=== PATIENT | female | born 1950 ===

== ENCOUNTER 2018-04-19 09:11 | Observation (INO) ==
[2018-04-19] MEDS ORDERED: LORazepam 2 MG/ML VIAL IV ONE ×2 (09:30→10:11)
[2018-04-19] MEDS ORDERED: NITROGLYCERIN 0.4 MG TAB.SUBL SL ONE (09:30)
[2018-04-19] MEDS ORDERED: PANTOPRAZOLE 40 MG VIAL IV ONE (09:31)
[2018-04-19] MEDS ORDERED: PHENobarb/HYOSCY/ATROPINE/SCOP 1 DOSE BOTTLE PO ONE (09:31)
[2018-04-19] MEDS ORDERED: ONDANSETRON 4 MG/2 ML VIAL IV ONE (09:32)
[2018-04-19] MEDS ORDERED: NITROGLYCERIN 1 GM OINT.TOP TD ONE (09:32)
--- NOTE | 2018-04-19 09:58 | Emergency Department Note ---
Skin/Abscess/FB HPI - General Chief complaint: Skin/Abscess/Foreign Body Stated complaint: something stuck in esophagus, hx of this Time Seen by Provider: 04/19/18 09:29 Source: patient Mode of arrival: ambulatory Limitations: no limitations - History of Present Illness HPI Narrative: Steak last night. She has a sensation of foreign body, pressure sensation in the epigastric area radiating up to the jugular notch. Improving slightly overnight. At this point she still has a burning sensation in the epigastric area, feels like heartburn in the past she has been on Prilosec but discontinued using that medication. She had 1 prior episode of foreign body that was stuck in the esophagus, does tell me that she was eating steak last night and she has had symptoms throughout the night. Even small sips of water seemed to be coming back up. - Related Data Allergies Allergy/AdvReac Type Severity Reaction Status Date / Time doxycycline Allergy Intermediate Vomiting Verified 04/19/18 09:15 Penicillins Allergy Intermediate Vomiting Verified 04/19/18 09:15 Review of Systems All systems ED: reviewed and negative except as stated. Past Medical History - Past Medical History Source: old records reviewed Medical history: Reports: GERD Surgical history ED: Reports: , hysterectomy Family history: Reports: no significant family history - Social History smoking status: Never smoker Alcohol use: Reports: Rarely Drug use: Reports: none Physical Exam Limitations: no limitations General appearance: alert, in no apparent distress Head: atraumatic, normocephalic Eye: Present: normal appearance, PERRL, EOMI ENT: normal exam, normal oropharynx, mucous membranes moist, TM's normal bilaterally Neck: Present: normal inspection, full ROM, trachea midline Chest: Present: normal inspection, symmetric chest wall rise Respiratory: Present: normal lung sounds bilaterally. Absent: respiratory distress Cardiovascular: Present: regular rate, normal rhythm Abdominal: Present: soft, normal bowel sounds. Absent: distention, tenderness, guarding Extremities: Present: normal inspection, full ROM, tenderness Back: Present: normal inspection, full ROM, tenderness. Absent: CVA tenderness (R), CVA tenderness (L), L-S tenderness, muscle spasm Neurological: Present: alert, oriented X3, CN II-XII intact. Absent: motor sensory deficit Psychiatric: Present: normal affect, normal mood Skin: Present: warm, dry, intact Course - Reevaluation(s) Reevaluation #1: We tried IV fluids. Some medication to help with spasm of the esophagus. Unfortunately we were not able to help much with her symptomatology, she is still spitting up her saliva, even small amounts of water that she try sipping will come right back up. I suspect she has a piece of steak stuck in the distal esophagus, also likely associated esophageal narrowing /stenosis of the distal esophagus. I did consult with Dr. Epperson who plans on doing an EGD here in a little while. Vital Signs Temperature 97.7 F 04/19/18 09:12 Pulse Rate 80 04/19/18 09:12 Respiratory Rate 18 04/19/18 09:12 Blood Pressure 163/89 04/19/18 09:12 Pulse Oximetry (%) 99 04/19/18 09:12 Temperature 97.7 F 04/19/18 09:12 Pulse Rate 75 04/19/18 09:41 Respiratory Rate 18 04/19/18 09:12 Blood Pressure 141/84 04/19/18 10:16 Pulse Oximetry (%) 99 04/19/18 09:41 Skin/Abscess/Foreign Body - MDM Narrative Medical decision making narrative: Final diagnosis is retained foreign body in esophagus, esophageal stricture. Disposition Pt seen by FUSE COILER/PA only: No Clinical Impression: Esophageal foreign body Disposition: Still a Patient Condition: Good Referrals: Shavon Laws [Primary Care Provider] -
[2018-04-19] MEDS: LACTATED RINGERS 1,000 ML IV SCH ×2 (10:10→15:54)
[2018-04-19] MEDS ORDERED: PROPOFOL 200 MG/20 ML VIAL IV ONE (12:48)
[2018-04-19] MEDS ORDERED: MIDAZOLAM 2 MG/2 ML VIAL IV ONE (12:48)
[2018-04-19] MEDS ORDERED: PROPOFOL 20 ML IV ONE ×3 (12:53→13:33)
[2018-04-19] MEDS ORDERED: MIDAZOLAM 2 MG/2 ML VIAL ONE (13:33)
[2018-04-19] MEDS ORDERED: ALBUTEROL SULFATE 2.5 MG/3 ML NEBULIZER NEB PRN (15:08)
[2018-04-19] MEDS ORDERED: ONDANSETRON 4 MG/2 ML VIAL IV PRN (15:08)
[2018-04-19] MEDS ORDERED: NALOXONE HCL 0.4 MG/ML VIAL IV PRN (15:08)
[2018-04-19] MEDS ORDERED: HYDROmorphone 2 MG/ML VIAL IV PRN (15:08)
[2018-04-19] MEDS ORDERED: IOPAMIDOL 100 ML BOTTLE IV ONE (15:10)
--- NOTE | 2018-04-19 15:26 | Internal Med History&Physical ---
Medical - H&P: HPI Patient information: Note initiated : 04/19/18 at 3:26 pm Service Date, if different from initiated Date: [] Patient: Mary Ann Pandya a 67 y/o F admitted on 04/19/18 for something stuck in esophagus, hx of this. Chief Complaint: [] History of present illness: Ms. 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 The patient had eaten a piece of meat that got stuck in her chest since around 6 :00 yesterday evening. The patient noted that it was difficult for her to swallow and was spitting out saliva. She had some chest discomfort. The patient felt that this will pass and therefore she did not present to the hospital until today. She was seen in the emergency room today and gastroenterology was consulted. Gastroenterology took the patient to the endoscopy suit to remove the foreign body. The foreign body was removed but it was noted that the esophagus was friable and there was a small mucosal lesion with concern for perforation. The patient also had bleeding which was controlled with clips. Given the concern for small perforation, friable mucosa the patient was asked to be admitted to the hospital as an observation for at least 24 hours to ensure stability. A CT chest was requested. On my evaluation patient had already had the endoscopy, she did not complain of any acute complaints, she denied any chest pain shortness of breath cough fever headache dizziness nausea vomiting belly pain, any diarrhea or constipation. All systems: reviewed and no additional remarkable complaints except as stated ( as per HPI rest negative) Medical - H&P: PMH Medical history: ASthma Seizure disorder Hypothyroidism Fibromyalgia edema Surgical history: C section Hystrectomy Pertinent family history: no h/o stomach or esophageal CA in family Social history: non smoker, occasional etoh no recreational drug use reported Medical - H&P: Meds Home Medications Medication Instructions Recorded Confirmed Type Furosemide [Lasix] 40 mg PO DAILY 04/19/18 04/19/18 History Montelukast Sodium [Singulair] 10 mg PO QAM 04/19/18 04/19/18 History lamoTRIgine [LaMICtal] 100 mg PO BID 04/19/18 04/19/18 History traZODone HCL [Trazodone HCl] 100 mg PO HS 04/19/18 04/19/18 History Allergies Allergy/AdvReac Type Severity Reaction Status Date / Time doxycycline AdvReac Mild Vomiting Verified 04/19/18 12:50 Penicillins AdvReac Mild Vomiting Verified 04/19/18 12:50 pregabalin [From Lyrica] AdvReac Verified 04/19/18 15:52 Medical - H&P: Exam - Constitutional Vitals: Temp Pulse Resp BP Pulse Ox 97.7 F 84 16 135/81 100 04/19/18 15:18 04/19/18 14:42 04/19/18 15:18 04/19/18 15:18 04/19/18 15:18 Exam: GENERAL: The patient is a well-developed, well-nourished in no apparent distress. Is alert and oriented x3. VITAL SIGNS: Reviewed and as noted elsewhere. HEENT: Head is normocephalic and atraumatic. Extraocular muscles are intact. Pupils are equal, round, and reactive to light. Nares appeared normal. Mouth appears any without lesions. Mucous membranes are moist. NECK: Normal to inspection, Supple, No lymphadenopathy or thyromegaly. LUNGS: Air entry equal on both sides, no wheezing, crackles or rhonchi noted. No accessory muscles of respiration HEART: Regular rate and rhythm normal, S1 and S2 heard, no Gallop, S3 or Rub Noted, No Gross murmur heard. ABDOMEN: Soft, nontender, and nondistended. Positive bowel sounds. No hepatosplenomegaly was noted. EXTREMITIES: No cyanosis, clubbing, rash, lesions or edema. NEUROLOGIC: Cranial nerves II through XII are grossly intact. Motor and Sensory System Grossly Intact PSYCHIATRIC: Normal affect, Normal Mood. Appropriate Behavior. SKIN: No ulceration or wounds noted, No jaundice, No rash noted. Medical - H&P: Reslt - Labs CBC & Chem 7: 04/19/18 15:20 04/19/18 15:20 Medical - H&P: A/P - Narrative A/P Narrative: A/P Foreign body in Esophagus Esophageal Bleed, s/p clip Friable Mucosa Concern for Mediastinitis Asthma h/o Seizure disorder Fibromyalgia Edema Plan Admit to med surg as obs get basic labs, GEt Chest CT, duonebs for asthma resume home meds once verified IV PPI for now NPO diet for now, if CT neg, then liquid diet Full code.
[2018-04-19 15:53] LABS: Basophils # (Auto) 0 K/mcL (0.0-0.3); Basophils % (Auto) 0.3 % (0.0-2.0); Eosinophils # (Auto) 0.2 K/mcL (0.0-0.7); Eosinophils % (Auto) 2.6 % (0.0-7.0); Granulocytes % (Auto) 72.2 % (38.0-78.0); Lymphocytes # (Auto) 1.2 K/mcL (1.5-4.8); Lymphocytes % (Auto) 19.2 % (15.5-49.0); Mean Cell Volume 93.4 fL (80.0-100.0); Mean Corpuscular HGB Conc 33.7 g/dL (31.0-36.0); Monocytes # (Auto) 0.3 K/mcL (0.1-0.9); Monocytes % (Auto) 5.7 % (1.0-12.0); Platelet Count 241 K/mcL (140-440); Red Cell Distribution Width 13.1 % (11.5-14.5)
[2018-04-19] MEDS: DEXTROSE 5%-LR 1,000 ML IV SCH (15:59)
[2018-04-19 16:06] LABS: ALT/SGPT 24 U/l (0-40); Albumin 4.1 gm/dL (3.2-5.2); Alkaline Phosphatase 102 U/L (39-117); Bilirubin,Direct < 0.2 mg/dL (0.0-0.3); Blood Urea Nitrogen 13 mg/dl (8-23); Gamma Glutamyl Transpeptidase 38 U/L (5-36); Uric Acid 6.6 mg/dL (2.5-8.0)
[2018-04-19] MEDS: PANTOPRAZOLE 40 MG VIAL IV SCH (16:19)
--- NOTE | 2018-04-19 17:28 | Cat Scan Report ---
CLINICAL INFORMATION: Status post endoscopic removal of an esophageal foreign body. Examination is performed to evaluate for mediastinitis or perforation COMPARISON: Most recent previous chest x-ray dated 03/06/2018 TECHNIQUE: Axial contrast enhanced images through the chest. Sagittally and coronally reformatted images. MIP reformatted images. 80 mL injected intravenously. FINDINGS: There is a linear metallic density within the distal esophageal lumen, just proximal to the gastroesophageal junction. This measures 16 mm x 5 mm x 2 mm. The esophagus is collapsed. There is evidence for thickening of the esophageal wall in the distal esophagus. There is no extraluminal gas. No extraluminal fluid. No mediastinal abscess or air. There is no pleural fluid. There is no pneumomediastinum or pneumothorax. There is a 6 mm noncalcified subpleural right lower lobe nodule, image 80/120. There is a 4 mm noncalcified right upper lobe nodule, image 59/120. There is a subtle 3 mm left lower lobe nodule, image 42/120. Fleischner Society recommendations: CT follow-up in 3-6 months and 18-24 months. No axillary or supraclavicular adenopathy. No pathologic hilar or mediastinal lymphadenopathy. Images of the upper abdomen are negative. No thoracic compression fracture. No lytic lesion. No rib or sternal lesions. IMPRESSION: 1. Intraluminal metallic foreign body in the distal esophagus 2. Probable wall thickening in the distal esophagus. No evidence for esophageal perforation. No mediastinal gas, fluid, or pathologic contrast enhancement 3. Noncalcified pulmonary parenchymal nodules as above The exam was performed using radiation dose optimization techniques including, but not limited to, automated exposure control, adjustment of the mA and/or kV according to patient size and use of iterative reconstruction technique. Interpreted and Authenticated by: Brenton Lua 04/19/18
[2018-04-19] MEDS: IPRATROPIUM/ALBUTEROL 3 ML AMPUL.NEB NEB SCH (19:12)
[2018-04-19] MEDS: 0.9 % SODIUM CHLORIDE 10 ML SYRINGE IV SCH (20:06)
[2018-04-19] MEDS: lamoTRIgine 100 MG TABLET PO SCH (20:06)
[2018-04-19] MEDS ORDERED: traZODone HCL 100 MG TABLET PO SCH (21:00)
[2018-04-20] MEDS: IPRATROPIUM/ALBUTEROL 3 ML AMPUL.NEB NEB SCH ×2 (01:08→07:15)
[2018-04-20] MEDS: DEXTROSE 5%-LR 1,000 ML IV SCH (05:28)
[2018-04-20] MEDS: 0.9 % SODIUM CHLORIDE 10 ML SYRINGE IV SCH (05:29)
[2018-04-20] MEDS: PANTOPRAZOLE 40 MG VIAL IV SCH (07:14)
[2018-04-20] MEDS: lamoTRIgine 100 MG TABLET PO SCH (07:21)
[2018-04-20] MEDS ORDERED: MONTELUKAST 10 MG TABLET PO SCH (09:00)
--- NOTE | 2018-04-20 10:45 | Discharge Summary ---
Medical - DS: Prov Patient information: Note initiated : 04/20/18 at 10:42 am Service Date, if different from initiated Date: [] Patient: Mary Ann Pandya 67 y/o F admitted on 04/19/18 for something stuck in esophagus, hx of this. Chief Complaint: [] Date of admission: 04/19/18 15:09 Discharge date: 04/20/18 Primary care physician: Shavon Laws Admitting clinician: Fermín Garcia Consults: 04/19/18 10:52 Consult to Physician [CONS] Stat Comment: Consulting Provider: Brenton Epperson Reason For Exam: Physician to Consult Discharging clinician: Fermín Garcia Medical - DS: Meds - Discharge Medications Active and Home Medications: Home Medications Furosemide [Lasix] 40 mg PO DAILY 04/19/18 [History Confirmed 04/19/18 Last Taken Unknown] Montelukast Sodium [Singulair] 10 mg PO QAM 04/19/18 [History Confirmed Last Taken Unknown] lamoTRIgine [LaMICtal] 100 mg PO BID 04/19/18 [History Confirmed 04/19/18 Last Taken Unknown] traZODone HCL [Trazodone HCl] 100 mg PO HS 04/19/18 [History Confirmed 04/19/18 Last Taken Unknown] Medical - DS: Hosp Hospital course: Ms. 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 The patient had eaten a piece of meat that got stuck in her chest since around 6 :00 yesterday evening. The patient noted that it was difficult for her to swallow and was spitting out saliva. She had some chest discomfort. The patient felt that this will pass and therefore she did not present to the hospital until today. She was seen in the emergency room today and gastroenterology was consulted. Gastroenterology took the patient to the endoscopy suit to remove the foreign body. The foreign body was removed but it was noted that the esophagus was friable and there was a small mucosal lesion with concern for perforation. The patient also had bleeding which was controlled with clips. Given the concern for small perforation, friable mucosa the patient was asked to be admitted to the hospital as an observation for at least 24 hours to ensure stability. The patient underwent a CT chest which was neg for any acute mediastinal issue. She was able to tolerate po diet well, tolerating liquid diet without any issue. She will be discharged home with follow up with GI. The patient had lung nodules noted on CT chest and would benefit from a repeat CT in 3-6 months, this should be ordered by her PCP, I have reviewed the importance of follow up on lung nodules. Discharge diagnosis: Forigen body in Esophagus. - Time Spent with Patient Total time spent providing and/or coordinating discharge services: Less than 30 minutes Medical - DS: Exam - Constitutional Vitals: Vital Signs Temp Pulse Pulse Resp BP BP Pulse Ox 04/20/18 07:15 83 16 04/20/18 06:36 98.7 F 16 111/69 98 04/20/18 04:00 97.6 F 78 18 102/62 96 04/20/18 00:00 97.4 F 64 16 107/64 96 04/19/18 19:37 97.7 F 78 18 124/66 98 04/19/18 19:15 97 H 16 04/19/18 15:50 97.7 F 16 135/81 100 04/19/18 15:18 97.7 F 16 135/81 100 04/19/18 14:42 84 16 133/77 97 04/19/18 14:30 82 16 126/73 99 04/19/18 14:16 85 16 114/74 100 04/19/18 14:02 93 H 20 126/74 99 04/19/18 13:58 97 H 20 148/81 99 04/19/18 13:06 85 16 125/77 98 04/19/18 13:03 97.7 F 75 18 114/60 99 04/19/18 12:16 114/60 04/19/18 12:01 118/71 04/19/18 11:46 113/70 04/19/18 11:31 115/65 04/19/18 11:16 123/94 04/19/18 11:01 117/76 04/19/18 10:46 119/72 Intake and Output 04/19/18 04/20/18 04/20/18 21:59 05:59 13:59 Intake Total 550 / 550 Output Total 400 / 400 Balance -400 / -400 550 / 550 Intake: Oral 550 / 550 Output: Void Amount 400 / 400 Other: Weight 135 lb Additional comments: Constitutional; Afebrile, cooperative, alert, not in distress. Eyes- No icterus, , No periorbital swelling Ears- Ext ear normal, hearing normal to conversation. Neck- Midline trachea, supple Respiratory system: Air Entry equal on both sides, No crackles or wheezing, no rhonchi. CVS- Rate rhythm regular, S1,S2 heard, no gallop, no rub. Abdomen- Soft nontender abdomen, no organomegaly, no tenderness, no guarding or rigidity, BED BUG EXTERMINATOR- AOOx3, moving all extremities, no gross focal deficit noted. Medical - DS: Data Labs on day of discharge: Labs from last 24 hours 04/19/18 04/19/18 04/19/18 15:20 15:20 15:20 WBC 6.1 RBC 4.10 Hgb 12.9 Hct 38.3 MCV 93.4 MCH 31.5 MCHC 33.7 RDW 13.1 Plt Count 241 MPV 7.3 L Gran % 72.2 Lymph % (Auto) 19.2 Lagrange % (Auto) 5.7 Eos % (Auto) 2.6 Baso % (Auto) 0.3 Gran # 4.4 Lymph # (Auto) 1.2 L [place] # (Auto) 0.3 Eos # (Auto) 0.2 Baso # (Auto) 0 PT 12.8 INR 1.0 Sodium 144 Potassium 3.4 Chloride 106 Carbon Dioxide 28 Anion Gap 10.0 BUN 13 Creatinine 0.9 GFR Calculation 67 Glucose 97 Uric Acid 6.6 Calcium 9.3 Phosphorus 3.5 Magnesium 2.0 Total Bilirubin 0.5 Direct Bilirubin < 0.2 GGT 38 H AST 19 ALT 24 Alkaline Phosphatase 102 Lactate Dehydrogenase 189 Total Protein 6.2 Albumin 4.1 Globulin 2.1 L Albumin/Globulin Ratio 2.0 Triglycerides 167 H Medical - DS: A/P - Patient/Caregiver Discharge Instructions Activity: increase activity as tolerated Diet: Full Liquid Additional Instructions: Please be on a full liquid diet for 2 more days (friday) Then please be on a soft diet, no hard food items for 2 weeks Follow up with Dr Epperson in 2 weeks No changes made to your chronic home medications You have some nodules noted on your Chest CT, you will need to talk with your PCP and make sure you have a repeat CT chest done in 3-6 months to ensure stability of these nodules. Go to the ER if chest pain, shortness of breath, black stools, fever or any other acute concern. - Follow up Plan Follow up with: Shavon Laws [Primary Care Provider] - Disposition: Home, Self-Care Prognosis: Good Rehab Potential: Good I certify that the patient requires SNF services: No Medical - DS: Qual - VTE Deep Vein Thrombosis/Pulmonary Embolism Present on Admission: No
--- NOTE | 2018-04-20 11:36 | Operative Note ---
DATE OF OPERATION: 04/19/2018 PROCEDURE: Esophagogastroduodenoscopy with foreign body (meat bolus) removal and with biopsies of the esophagus. 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 ANESTHETIC USED: Propofol 630 mg IV and Versed 4 mg IV. PREOPERATIVE DIAGNOSIS: This is a 67-year-old white female who presented to [facility] Emergency Room late this morning with a foreign body (food bolus) in her esophagus causing obstruction. She ate steak at about 6:00 p.m. last night and has not been able to effectively swallow her saliva since then. In taking her history, she has had a couple of episodes of foreign body of the esophagus causing obstructions on two other occasions. One was in [place] where she tells me she had a radish stuck in the esophagus, and I believe it had to be endoscopically removed. More recently in 11/2015 I have reviewed a record by Dr. Felton Morales at [facility] here in [place] where the patient had a piece of meat stuck in the esophagus and had to be removed. Reviewing that 2015 record, I see that Dr. Morales had considerable difficulty removing the meat bolus. He used up to I believe 560 mg of propofol and was still not able to achieve the foreign body removal, and at that point he called upon Anesthesia for general anesthesia with intubation, and I think he then spent another hour or so before he was able to finally get the food bolus broken up and removed. He described the meat bolus at that time at 30 cm from the incisors. He did not take any biopsies, and he commented on the absence of any substantial ring or stricture formation of the esophagus. Four days later, he went back to the esophagus and dilated but according to his report, he dilated only at the distal esophagus which would not correspond to the area where the food had been impacted 4 days earlier. Again, no biopsies were obtained at that time. I am suspicious whether the patient has eosinophilic esophagitis not yet recognized. The patient has not been seen in our office in followup regarding this problem any further. POSTOPERATIVE DIAGNOSIS: Today the patient has a piece of steak tightly impacted at the GE junction. It was a fairly long procedure of about 45 minutes to remove the food bolus, and after doing so there is bleeding and possible local perforation of the mucosa where the food bolus had been located. Hemostatic clips applied. DESCRIPTION OF PROCEDURE: Prior to the procedure the patient provided her own informed consent. The patient was evaluated and considered medically fit for endoscopy. With the patient in the left lateral decubitus position, a gastroscope was advanced via the mouth to the esophagus under direct vision. Unfortunately, the patient apparently received a GI cocktail in the emergency room, and so there is thick, cloudy, white fluid in the esophagus which I aspirated through the scope to the greatest extent possible. After removing this fluid, there is clearly a food bolus appearing as a piece of meat at the distal esophagus. I see no strictures or rings or furrowing of the length of the esophagus to suggest eosinophilic esophagitis, but that is still a possibility. I then set about trying to remove the food bolus. It proved to be tightly impacted. I tried using a Walters net, but this was not initially effective. The meat was too tightly impacted. I then used a snare to try to cut off some pieces of the meat bolus. This was partially effective and the pieces that I removed I gathered together and took out of the mouth by Walters net. I did this several times and was able to chip away at the meat bolus, but the majority of the meat bolus remained tightly impacted. I used a Raptor forceps to a tear away multiple pieces of the meat bolus. It had a tendency to shred without actually removing the whole bolus. Again, I gathered up these and collected these pieces and removed them with Walters net. I went back to using the Walters net and the snare, alternating with the Raptor forceps and the Walters net, etc. Finally, after about 45 minutes of endoscopy time I was able to dislodge the food bolus enough that it advanced. The remaining bolus passed into the stomach. The scope was advanced into the stomach and retroflex view reveals no lesion at the gastric cardia. I did note some bloody fluid, although not a very large amount, in the gastric fundus after having worked on her esophagus for the prolonged procedure. The duodenum was normal. The scope was brought back to the esophagus. The area of the GE junction is identified, and there is a punctate area of bleeding approximately 5 mm from the GE junction. This is in the setting of local necrotic and friable tissue where the food had been impacted for approximately 20 hours. It is not clear whether this represents a local necrotic perforation from the food bolus or it is possible that during the procedure to extract the food bolus whether a local injury occurred. Again, this particular site of bleeding was obscured by the tightly impacted food bolus until I was able to push it out of the way. I placed two hemostatic clips directly upon the area of the bleeding and possible necrosis or small perforation. I then took biopsies x4 from the mid-esophagus looking for evidence of eosinophilic esophagitis. Of course, I did not contemplate any dilatation of the GE junction today given the findings described above. COMPLICATIONS: None immediate, although there is bleeding, and there may be some necrotic perforation or procedure-related perforation or mucosal injury at the distal esophagus just immediately above the GE junction. RECOMMENDATIONS AND FOLLOWUP: I have contacted Dr. Garcia of the hospitalist service and reviewed the case with him. My recommendation is to admit the patient as an observation patient. Strictly n.p.o. for now. We will arrange for a CAT scan of the chest with contrast looking for any evidence, especially of mediastinal fluid or air. If there is mediastinal fluid or air, then cultures and antibiotic coverage and transfer to a hospital with thoracic surgery capability would be advised. On the other hand, if there is no evidence of such perforation or mediastinal air, etc., then I would recommend observing the patient here for another 24 hours and advancing her diet to full liquids only. The full liquid diet would be advised for 3 days and then thereafter only soft foods until her esophagus can be reexamined and the biopsies reviewed. The patient is still at risk for recurrent dysphagia and obstruction and even more so now that she has a couple of hemostatic clips at the GE junction which could partially impede food passage even further. JCM:marina Job ID: [id number] Doc ID: [id number] Brenton MARTINEZ
--- NOTE | 2018-04-22 13:35 | Surgical Pathology Report ---
HISTOLOGY SPECIMEN MICROSCOPIC DIAGNOSIS ESOPHAGUS, MID, BIOPSY: -- SQUAMOUS MUCOSA WITH SCATTERED INTRAEPITHELIAL EOSINOPHILS, UP TO 5/hpf, AND BACTERIAL FORMS. -- NO FUNGAL ORGANISMS IDENTIFIED ON PAS STAIN (ADEQUATE TECHNICAL CONTROL). -- NO DYSPLASIA OR MALIGNANCY IDENTIFIED. (EBD:sln) CLINICAL HISTORY Foreign body stuck in esophagus. PROCEDURAL IMPRESSION Rule out eosinophilic esophagitis. GROSS DESCRIPTION Received in formalin labeled mid esophageal biopsy, are three cleaning-frank tissue fragments 0.3 to 0.6 cm. Entirely submitted - one cassette. (SCB:sln) Electronically Signed by: Noreen Case M.D.
== END 2018-04-20 11:40 | disposition home or self-care (01) ==
LOC: ED 09:11 → SUR 13:08 → MEDSUR 13:08
PROVIDERS: ADMIT Internal Medicine; ATTEND Internal Medicine
CPT/HCPCS: 99217; 99219; G0378; J2060; J2250; J2405; J7120; J7620; J7620-GY; Q9967